=== PATIENT | male | born 1985 | race Caucasian/White ===

== ENCOUNTER 2021-11-02 14:20 | Outpatient (CLI) | payer BC, SELFPAY | END 2021-11-02 14:21 | disposition home or self-care (01) | LOC: ANHGOSHLAB 14:21 | PROVIDERS: PCP Family Medicine; Visit Provider Family Medicine | DX: E11.65 Type 2 diabetes mellitus with hyperglycemia (principal) | CPT/HCPCS: 36415 ==

== ENCOUNTER 2022-03-14 11:15 | Outpatient (CLI) | payer BC, SELFPAY ==
[2022-03-14 19:51] LABS: Alanine Aminotransferase 49 U/L (6-50); Albumin Level 4.1 g/dL (3.5-5.1); Alkaline Phosphatase 80 U/L (38-126); Anion Gap 9 mmol/L (8-16); Aspartate Amino Transferase 48 U/L (17-59); Bilirubin,Total 0.7 mg/dL (0.2-1.3); Blood Urea Nitrogen 13 mg/dL (9-20); Calcium 9.7 mg/dL (8.4-10.2); Carbon Dioxide 28 mmol/L (22-30); Chloride 101 mmol/L (98-107); Cholesterol 117 mg/dL (0-200); Estimated Glomerular Filt Rate > 60; Glucose 260 mg/dL (65-110); HDL Direct 34 mg/dL; Potassium 4.4 mmol/L (3.4-5.0); Sodium 138 mmol/L (137-145); Triglycerides 99 mg/dL (<150)
[2022-03-14 20:19] LABS: LDL Cholesterol Direct 56 mg/dL
[2022-03-14 20:50] LABS: Microalbumin Urine Random 64.4 mg/L (0-16.7)
[2022-03-14 21:33] LABS: Hemoglobin A1C 9.9 % (<5.7)
== END 2022-03-14 11:16 | disposition home or self-care (01) ==
LOC: ANHGOSHLAB 11:17
PROVIDERS: PCP Family Medicine; Visit Provider Family Medicine
DX: E11.65 Type 2 diabetes mellitus with hyperglycemia (principal)
CPT/HCPCS: 36415; 80053; 80061; 82043; 82607; 83036